=== PATIENT | female | born 1955 | race American Indian/Alaskan Native ===

== ENCOUNTER 2019-01-25 09:18 | Outpatient (CLI) | payer MEDICARE ==
[2019-01-25 09:40] LABS: Blood Urea Nitrogen 10 mg/dL (7-17)
== END 2019-01-25 09:19 | disposition home or self-care (01) ==
LOC: LAB 09:18
PROVIDERS: ATTEND Surgery
DX: C50.411 Malignant neoplasm of upper-outer quadrant of right female breast (principal); I10 Essential (primary) hypertension; E66.9 Obesity, unspecified; E11.9 Type 2 diabetes mellitus without complications
CPT/HCPCS: 36415; 82565; 84520

== ENCOUNTER 2019-01-25 10:17 | Outpatient (CLI) | payer MEDICARE ==
--- NOTE | 2019-01-26 10:39 | Magnetic Resonance Report ---
BILATERAL BREAST MRI WITHOUT AND WITH CONTRAST: 01/25/19 10:17:00 CLINICAL: Newly diagnosed right breast cancer. She had a needle core biopsy of a 9 x 7 by 8mm mass at [facility] on 12/28/18. Pathology: invasive ductal carcinoma, moderately differentiated, grade III. COMPARISON:[facility] mammograms 12/21/18 and 11/24/18. TECHNIQUE: Axial 1.0-mm T1 without, axial high resolution 2.0-mm T2 and axial 1.0-mm dynamic Vibrant high-resolution postcontrast T1 fat saturation sequences on a 1.5 Michelle magnet. The examination was performed with an 8 channel dedicated [place] breast coil. Post processing with CAD and subtraction was performed on an marker.to workstation. 19.0 cc of Multihance was injected without incident for the contrast portion of the exam. Consent was obtained prior to the administration of the contrast. FINDINGS: Right: Minimal background parenchymal enhancement. The known cancer is an irregular enhancing mass at 9 o'clock 13.7 cm from the nipple an 8.5 cm from the chest wall. It contains a biopsy clip and measures 15.0 x 11.0 x 8.9 mm. The mass demonstrates heterogeneous enhancement with mixed kinetics, 171% peak enhancement, 62% type I persistent, 24% type II plateau and 14% type III washout. Linear non-Mass enhancement contiguous to the mass measures 14 mm in the AP dimension. The mass and the non-Mass enhancement together measure approximately 2.9 cm in the AP dimension. No other mass or suspicious enhancement. Several right axillary lymph nodes have central fat and benign morphology.No suspicious right axillary or right internal mammary lymph nodes. Left: Minimal background parenchymal enhancement. No mass or suspicious enhancement. No suspicious left axillary or left internal mammary lymph nodes. IMPRESSION: 1. A known 15 mm right breast cancer at 9 o'clock approximately 14 cm from the nipple and contiguous highly suspicious non-Mass enhancement measuring 14 mm. The two lesions together measure 2.9 cm in the AP dimension. 2. No additional suspicious lesion of either breast. No suspicious lymph nodes. RIGHT BI-RADS 6 -- Known Cancer LEFT BI-RADS 1 - - Negative
== END 2019-01-25 10:18 | disposition home or self-care (01) ==
LOC: SPVIMAG 10:17
PROVIDERS: ATTEND Surgery
DX: C50.411 Malignant neoplasm of upper-outer quadrant of right female breast (principal); I10 Essential (primary) hypertension; E66.9 Obesity, unspecified; E11.9 Type 2 diabetes mellitus without complications
CPT/HCPCS: A9577; C8908; 36415; 77049; 82565; 84520

== ENCOUNTER 2019-02-14 06:50 | Day surgery (SDC) | payer MEDICARE ==
[~2019-02-14 06:50] MED LIST: VANCOMYCIN 1,500 MG in NACL 0.9% 500 ML 500 ML IV SCH; VANCOMYCIN/NS 1 GM/250 ML 1 GM/250 ML BAG IV NR
[2019-02-14] MEDS ORDERED: NACL P/F VIAL (10 ML) 10 ML ONE (07:49)
[2019-02-14] MEDS ORDERED: METHYLENE BLUE ONE (07:49)
[2019-02-14] MEDS ORDERED: XYLOCAINE 1% 20 mL INFILTRATI ONE (08:00)
[2019-02-14] MEDS ORDERED: SUBLIMAZE IV NR (08:39)
[2019-02-14] MEDS ORDERED: NEURONTIN PO NR (08:40)
[2019-02-14] MEDS ORDERED: LACTATED RINGERS 1,000 ML IV SCH (08:41)
[2019-02-14] MEDS ORDERED: PEPCID IV NR (08:42)
--- NOTE | 2019-02-14 08:51 | Mammography Report ---
NEEDLE LOCALIZATION AND HOOKWIRE PLACEMENT RIGHT BREAST:02/14/19 CLINICAL: Right breast cancer. COMPARISON: 02/09/19 FINDINGS: Using mammographic guidance, 1% lidocaine local anesthesia and sterile technique, a 7.5-cm Salazar needle with a hookwire was placed from a lateral approach to localize a mass with a biopsy clip. The hookwire was deployed and the needle was removed. Satisfactory placement was confirmed by orthogonal views. The patient tolerated the procedure well and there were no apparent complications. IMPRESSION: Uncomplicated hookwire placement right breast.
[2019-02-14] MEDS ORDERED: MARCAINE-EPI 0.5%-1:200,000 INFILTRATI ONE (09:00)
[2019-02-14] MEDS ORDERED: VERSED IV NR (09:00)
[2019-02-14] MEDS ORDERED: DECADRON IV ONE (09:00)
--- NOTE | 2019-02-14 10:51 | Short Stay Summary ---
Short Stay Documentation Date of service: 02/14/19 - History H&P: obtained from office - Allergies and Medications Current Medications: Allergies Penicillins Allergy (Verified 02/12/19 17:25) Hives Home Medications Medication Instructions Recorded Confirmed Last Taken Type Bupropion HCl [Bupropion HCl Sr] 150 mg PO BID 02/12/19 02/14/19 02/13/19 History Cyclobenzaprine [Flexeril] 10 mg PO QHS PRN 02/12/19 02/14/19 02/13/19 History Lisinopril [Zestril TAB] 2.5 mg PO BID 02/12/19 02/14/19 02/13/19 History Pravastatin [Pravachol] 40 mg PO QDAY 02/12/19 02/14/19 02/13/19 History Sertraline [Zoloft] 100 mg PO QDAY 02/12/19 02/14/19 02/13/19 History Vitamin B Complex/Folic Acid 0.4 mg PO Q48H 02/12/19 02/14/19 02/13/19 History [Super Quints B-50 Tablet] Zolpidem [Ambien] 5 mg PO QHS PRN 02/12/19 02/14/19 02/13/19 History metFORMIN [Glucophage] 500 mg PO QDAY 02/12/19 02/14/19 02/13/19 History Active Medications Celecoxib (Celebrex) 200 mg PO PREOP NR Stop: 02/14/19 23:59 Last Admin: 02/14/19 09:20 Dose: 200 mg Documented by: Famotidine (Pepcid) 20 mg IV PREOP NR Stop: 02/14/19 23:59 Last Admin: 02/14/19 09:15 Dose: 20 mg Documented by: Fentanyl (Sublimaze) 100 mcg IV ONCE NR Stop: 02/14/19 13:00 Gabapentin (Neurontin) 300 mg PO PREOP NR Stop: 02/14/19 23:59 Last Admin: 02/14/19 09:20 Dose: 300 mg Documented by: Vancomycin HCl 1,500 mg/ (Sodium Chloride) 530 mls @ 333.333 mls/hr IV PREOP OLIVIA Last Admin: 02/14/19 09:31 Dose: 333.333 mls/hr Documented by: Lactated Ringer's (Lactated Ringers) 1,000 mls @ 100 mls/hr IV DIRECT OLIVIA Stop: 02/14/19 23:59 Last Admin: 02/14/19 09:10 Dose: 100 mls/hr Documented by: Midazolam HCl (Versed) 2 mg IV PREOP NR Stop: 02/14/19 23:59 - Brief post op/procedure progress note Date of procedure: 02/14/19 Pre-op diagnosis: Right breast cancer of the upper outer quadrant Post-op diagnosis: same Procedure: Right needle localization partial mastectomy and SLNB Anesthesia: GETA Findings: Radiograph specimen with clip and mass present; x2 SLNs Surgeon: COURTNEY COSTA Estimated blood loss: minimal Pathology: list (right partial mastectomy and SLNs) Specimen disposition: to lab Condition: stable - Disposition Condition at discharge: Good Disposition: DC-01 TO HOME OR SELFCARE Short Stay Discharge Plan Activity: other (no heavy lifting; wear breast binder) Diet: regular Wound: keep clean and dry (may shower in 48 hours; wear breast binder) Follow up with: KEY HIGUERA MD [Primary Care Provider] - 7 Days COURTNEY COSTA MD [Staff Physician] - 7 Days Prescriptions: HYDROcodone/APAP 5-325 [[place] 5/325] 1 each PO Q6HR PRN #30 tablet PRN Reason: Pain
[2019-02-14] MEDS ORDERED: ZOFRAN ONE ×2 (10:54→13:38)
[2019-02-14] MEDS ORDERED: DECADRON ONE ×2 (10:54→13:38)
[2019-02-14] MEDS ORDERED: XYLOCAINE MPF 2% ONE ×2 (10:54→13:38)
[2019-02-14] MEDS ORDERED: DIPRIVAN 10 MG/ML IV ONE ×2 (10:55→13:40)
[2019-02-14] MEDS ORDERED: SUBLIMAZE ONE ×2 (10:55→13:38)
--- NOTE | 2019-02-14 10:58 | Operative Report ---
Operative Report Operative Report: Operative Report: February 14, 2019 Preoperative diagnosis: Right breast cancer of the upper outer quadrant Postoperative diagnosis: Same Procedure: Right needle localization partial mastectomy of the upper outer quadrant and SLNB Surgeon: Yue Murrell MD Anesthesia: General Findings: Right wire and clip present within radiograph specimen; x 2 SLN Complications: None EBL: Minimal Disposition: PACU in good condition Indications for operative procedure: This is a 63 year old lady with newly diagnosed right breast cancer of the upper outer quadrant, Stage I [id number] ER/IN positive, right breast mass at the 9:00 position 14-16 cm from the nipple. Recommendations are to proceed with breast conservation. She understands the role of adjuvant radiation therapy and Oncotype DX will be obtained by medical oncology. She wished to proceed with the above procedure. Procedure in detail: The patient was taken to radiology for wire placement for localization known area of cancer. Anesthesia placed right pectoral block. Patient was then taken to the operating room. Gen. anesthesia was administered. The right nipple was injected with radioisotope and 1 cc of methylene blue with 1 cc of saline. Right breast and axilla were prepped and draped in the normal sterile operative fashion. The wire was identified. Timeout was performed. Gamma probe was inserted into the axilla. The area of hot spot was identified. A right axillary incision was made with a 15 blade knife with dissection taken down to the subcutaneous tissues. The axillary fascia was opened with the Bovie cautery. 2 SLNs were identified. All remaining counts were less than 10% of the highest count. Lymph node was sent to pathology for permanent processing. Hemostasis was obtained in the right axillary cavity. Axillary cavity was appropriately irrigated and suctioned. Hemostasis was noted. Axillary fascia was approximated and closed using interrupted 3-0 Vicryl and the skin brought together and closed using a running 4-0 Monocryl followed by skin affix. Attention was then taken towards the right breast. Ultrasound was used to moriah the area of concern. Lateral breast incision at the 9:00 position was made with a 15 blade knife and dissection taken down to subcutaneous tissues. First began raising of the superior flap with removal of the wire from the skin with dissection take down to the pectoralis muscle, followed by raising of the inferior flap, medial flap and lateral flap with all flaps taken down to the pectoralis muscle. The breast area of concern was appropriately removed posteriorly from the pectoralis muscle with the aid of the Bovie cautery. The wire was not encountered. Specimen was marked and then sent to pathology and radiology; radiograph specimen with wire and clip present. Breast cavity was irrigated and hemostasis was obtained. The posterior deep breast tissues were approximated and closed using interrupted 3-0 Vicryl. The subcutaneous tissues were approximated and closed using interrupted 3-0 Vicryl followed by closing of the skin with a running 4-0 Monocryl and skin affix. The patient tolerated surgery very well and she was awaken from anesthesia without any complication and transported to PACU in good condition.
[2019-02-14 17:52] VITALS: BP 135/74
--- NOTE | 2019-02-15 10:11 | XRay Report ---
SPECIMEN RADIOGRAPH RIGHT BREAST: 02/14/19 06:50:00 CLINICAL: Surgical excision of a known cancer. FINDINGS: The targeted mass with a biopsy clip is identified within the specimen. IMPRESSION: Excision of the targeted lesion.
== END 2019-02-14 06:51 | disposition home or self-care (01) ==
LOC: OR 06:50
PROVIDERS: ATTEND Surgery
DX: C50.411 Malignant neoplasm of upper-outer quadrant of right female breast (principal); E78.00 Pure hypercholesterolemia, unspecified; I10 Essential (primary) hypertension; G47.30 Sleep apnea, unspecified; E66.9 Obesity, unspecified; E11.9 Type 2 diabetes mellitus without complications; F32.9 Major depressive disorder, single episode, unspecified; Z72.89 Other problems related to lifestyle; Z98.890 Other specified postprocedural states; Z90.710 Acquired absence of both cervix and uterus; Z98.891 History of uterine scar from previous surgery; Z80.3 Family history of malignant neoplasm of breast; Z79.899 Other long term (current) drug therapy; Z79.84 Long term (current) use of oral hypoglycemic drugs; Z88.0 Allergy status to penicillin
CPT/HCPCS: 19281; 19301; 38525; 38792; 76098; J1100; J2250; J2405; J2704; J3010; J3370; J7040; J7120; Q9968; 78800; 88307; 88309; 88333; 88341; 88342; A9541